=== PATIENT | female | born 1965 | race Caucasian/White ===

== ENCOUNTER → 2019-06-25 | Outpatient (CLI) | payer MEDICARE ==
[~2019-06-25] MED LIST: ASPI-496 PO; CHOL2000 PO; CHOL200024 PO; DULO60CA56 PO; FURO40TA6 PO; LEVO112T4 PO; LORA-856 PO; METH750T87 PO; METO10TA82 PO; NIFE30TA13 PO; OMEP-110 PO; OXYC-302 PO; SIMV20TA3 PO; SPIR25TA PO
== END | disposition home or self-care (01) ==
LOC: CARD 13:43
PROVIDERS: ATTEND Internal Medicine Cardiovascular Disease
DX: I27.0 Primary pulmonary hypertension (principal)
CPT/HCPCS: 94060; 94726; 94729

== ENCOUNTER 2019-07-23 15:11 | Outpatient (CLI) | payer MEDICARE | END 2019-07-23 23:59 | disposition home or self-care (01) | LOC: CVU 15:11 | PROVIDERS: ATTEND Internal Medicine Cardiovascular Disease | DX: I08.8 Other rheumatic multiple valve diseases (principal); I27.20 Pulmonary hypertension, unspecified | CPT/HCPCS: 93306 ==

== ENCOUNTER 2019-10-02 10:56 | Day surgery (SDC) | payer MEDICARE ==
[~2019-10-02] VITALS: Ht 160 cm; Wt 101.0 kg
[~2019-10-02 10:56] MED LIST changes: +SIMV20TA19 PO; -SIMV20TA3 PO
[2019-10-02] MEDS ORDERED: SODIUM CHLORIDE 0.9% 1,000 ML IV SCH (11:21)
[2019-10-02] MEDS ORDERED: DIPHENHYDRAMINE 50 MG/ML, 1ML IVPush ONE (11:30)
[2019-10-02 11:31] VITALS: BP 123/61
[2019-10-02] MEDS ORDERED: MV-M1CAP15 PO (11:54)
[2019-10-02] MEDS ORDERED: MACI10TA PO (11:54)
[2019-10-02] MEDS ORDERED: TADA20TA33 PO (11:54)
[2019-10-02] MEDS ORDERED: CYAN50008 PO (11:54)
[2019-10-02] MEDS ORDERED: DIPHENHYDRAMINE 50 MG/ML, 1ML ONE (12:06)
[2019-10-02] MEDS ORDERED: FENTANYL PF 100 MCG/2ML ONE (12:26)
[2019-10-02] MEDS ORDERED: MIDAZOLAM 1 MG/ML, 5ML ONE (12:26)
[2019-10-02] MEDS ORDERED: LIDOCAINE 2%, 20ML ONE (13:06)
== END 2019-10-02 15:37 | disposition home or self-care (01) ==
LOC: CACL 10:56
PROVIDERS: ATTEND Internal Medicine Cardiovascular Disease
DX: I27.23 Pulmonary hypertension due to lung diseases and hypoxia (principal); J84.89 Other specified interstitial pulmonary diseases; E78.5 Hyperlipidemia, unspecified; Z79.899 Other long term (current) drug therapy
CPT/HCPCS: 93451; 99156; 99157; C1894; J1200; J2250; J3010

== ENCOUNTER → 2020-06-08 | Outpatient (CLI) | payer MEDICARE ==
[~2020-06-08] MED LIST changes: +CYAN50008 PO; +MACI10TA PO; +MV-M1CAP15 PO; +TADA20TA33 PO
== END | disposition home or self-care (01) ==
LOC: CVU 10:30
PROVIDERS: ATTEND Internal Medicine Cardiovascular Disease
DX: I08.8 Other rheumatic multiple valve diseases (principal); I27.20 Pulmonary hypertension, unspecified
CPT/HCPCS: 93306; 93356

== ENCOUNTER 2020-08-13 05:31 | Day surgery (SDC) | payer MEDICARE ==
[2020-08-10 15:51] LABS: ALBUMIN 3.7 g/dL (3.4-5.0); ANION GAP 8 mmol/L (5-15); CALCIUM 8.7 mg/dL (8.5-10.1); CHLORIDE 103 mmol/L (98-107)
[2020-08-10 15:56] LABS: ALANINE AMINOTRANSFERASE 22 U/L (12-78); ALKALINE PHOSPHATASE 55 U/L (45-117); BILIRUBIN,TOTAL 0.5 mg/dL (0.2-1.0); CREATININE 0.67 mg/dL (0.55-1.02); TOTAL PROTEIN 7.1 g/dL (6.4-8.2)
[~2020-08-13] VITALS: Ht 157.5 cm; Wt 111.0 kg
[~2020-08-13 05:31] MED LIST changes: +HYDR200T72 PO; -OXYC-302 PO; +OXYC1TAB14 PO; +Oxygen INH; +TREP2.5T PO
[2020-08-13 06:33] VITALS: BP 107/71
[2020-08-13] MEDS ORDERED: CHLORHEXIDINE 15 ML UDC ONE (07:05)
[2020-08-13 07:10] LABS: HCG UR SG 1.018 (1.003-1.030)
[2020-08-13] MEDS ORDERED: CHLORHEXIDINE 15 ML UDC MM ONE (07:30)
[2020-08-13] MEDS ORDERED: LACTATED RINGERS 1,000 ML IV SCH (07:30)
[2020-08-13] MEDS ORDERED: DEXAMETHASONE 4 MG/ML, 1ML ONE (07:51)
[2020-08-13] MEDS ORDERED: FENTANYL PF 100 MCG/2ML ONE (07:54)
[2020-08-13] MEDS ORDERED: OXYcodone 5 MG/5 ML ORAL.SOL UDC PO PRN (08:30)
[2020-08-13] MEDS ORDERED: ALBUTEROL SULFATE 2.5 MG/3 ML NPPB PRN (08:30)
[2020-08-13] MEDS ORDERED: FENTANYL PF 100 MCG/2ML IV PRN (08:30)
[2020-08-13] MEDS ORDERED: ACETAMINOPHEN 325 MG TABLET PO PRN (08:30)
[2020-08-13] MEDS ORDERED: PROMETHAZINE 25 MG/ML, 1ML IVPush PRN (08:30)
[2020-08-13] MEDS ORDERED: hydrALAzine 20 MG/ML, 1ML IV PRN (08:30)
[2020-08-13] MEDS ORDERED: LABETALOL 5MG/ML, 20ML IV PRN (08:30)
[2020-08-13] MEDS ORDERED: SUCCINYLCHOLINE 20 MG/ML, 10ML ONE (09:54)
[2020-08-13] MEDS ORDERED: PROPOFOL 10 MG/ML, 20ML ONE (09:54)
[2020-08-13] MEDS ORDERED: ROCURONIUM 10MG/ML,5ML ONE (09:54)
[2020-08-13] MEDS ORDERED: ONDANSETRON 2MG/ML, 2ML ONE (09:54)
[2020-08-13] MEDS ORDERED: SUGAMMADEX 200 MG/2 ML IVPush ONE (09:55)
== END 2020-08-13 11:35 | disposition home or self-care (01) ==
LOC: OUT 05:31
PROVIDERS: ATTEND Internal Medicine Critical Care Medicine
DX: R59.0 Localized enlarged lymph nodes (principal); J84.89 Other specified interstitial pulmonary diseases; I27.9 Pulmonary heart disease, unspecified; I10 Essential (primary) hypertension; E78.5 Hyperlipidemia, unspecified; K21.9 Gastro-esophageal reflux disease without esophagitis; E66.01 Morbid (severe) obesity due to excess calories; Z20.822 Contact with and (suspected) exposure to COVID-19; Z79.899 Other long term (current) drug therapy; Z72.89 Other problems related to lifestyle
CPT/HCPCS: 31624; 31629; 31653; 36415; 71045; 80053; 81025; 87015; 87070; 87102; 87116; 87205; 87206; 88112; 88173; 88305; 89051; J0330; J1100; J2405; J2704; J3010; J7120; U0003; 31625; 31627; 76000